=== PATIENT | female | born 1980 | race Caucasian/White ===

== ENCOUNTER 2022-04-13 11:13 | Emergency (ER) | payer OTHER ==
[~2022-04-13] VITALS: Ht 154.9 cm; Wt 102.1 kg
[2022-04-13 11:47] LABS: BASOPHILS # (AUTO) 0.1 10^3/uL (0.0-0.1); BASOPHILS % (AUTO) 1 % (0-10); EOSINOPHILS # (AUTO) 0.4 10^3/uL (0.0-0.3); EOSINOPHILS % (AUTO) 4 % (0-10); HEMATOCRIT 57 % (35-52); HEMOGLOBIN 19.5 g/dL (11.5-16.0); LYMPHOCYTES # (AUTO) 2.6 10^3/uL (1.0-4.0); LYMPHOCYTES % (AUTO) 23 % (12-44); MEAN CORPUSCULAR HEMOGLOBIN 32 pg (25-34); MEAN CORPUSCULAR HGB CONC 34 g/dL (32-36); MEAN CORPUSCULAR VOLUME 94 fL (80-99); MEAN PLATELET VOLUME 9.9 fL (9.0-12.2); MONOCYTES # (AUTO) 1.2 10^3/uL (0.0-1.0); MONOCYTES % (AUTO) 11 % (0-12); NEUTROPHILS # (AUTO) 6.8 10^3/uL (1.8-7.8); NEUTROPHILS % (AUTO) 62 % (42-75); PLATELET COUNT 316 10^3/uL (130-400)
[2022-04-13 11:53] LABS: ALBUMIN 4.2 GM/DL (3.2-4.5); CHLORIDE 102 MMOL/L (98-107); POTASSIUM 4.1 MMOL/L (3.6-5.0); SODIUM 138 MMOL/L (135-145)
--- NOTE | 2022-04-13 11:53 | ED Respiratory ---
General Chief Complaint: Respiratory Problems Stated Complaint: SOB/POSSIBLE BLOOD CLOT Nursing Triage Note: PT AMB TO RM 7 AFTER BEING SENT BY [facility] FOR FURTHER EVALUATION. PT HAD NEW APPT WITH CHRISTINA BA AT [facility] AND O2 WAS 85%. PT STATES SHE HAD COVID A YEAR AND A HALF AGO AND HAD BEEN ON HOME OXYGEN SINCE. STATES ABOUT 3 MONTHS AGO HER PCP WAS WANTING HER TO WEAN HERSELF OFF OXYGEN. STATES SINCE SHE STILL GETS WINDED WITH ACTIVITY AND IS IN THE MID 80s ON ROOM AIR. DENIES CP, SOA OR ANY OTHER SYMPTOMS AT THIS TIME. History of Present Illness Date Seen by Provider: Apr 13, 2022 Time Seen by Provider: 11:20 Initial Comments Patient is a 42-year-old female who presents to the emergency department at the behest of her new PCP as there was some concern that she could possibly have a PE. Patient states she had COVID approximately 18 months ago and since that time has had persistent exertional dyspnea/shortness of air. She states nothing has recently changed but she saw a new provider who had some pulmonary background. Patient was on supplemental oxygen at home for several months but approximately 1 month ago was weaned off. Patient states she has still had dyspnea with exertion. She states she has no issues when she is sitting still but ambulating or doing any activity causes her to be short of breath. She states she still has equipment for home oxygen but does not use it per her former PCPs recommendation. She again denies any acute symptomology but states she feels exactly the same as she has for several months. She denies any unilateral lower extremity swelling/redness. She states she does get some bilateral lower extremity edema when she is on her feet for a prolonged period of time but this is not new. She denies any chest pain. Allergies and Home Medications Allergies Coded Allergies: No Known Drug Allergies (Unverified , 04/13/22) Patient Home Medication List Home Medication List Reviewed: Yes Review of Systems Review of Systems Constitutional: no symptoms reported EENTM: no symptoms reported Respiratory: see HPI Cardiovascular: see HPI Gastrointestinal: no symptoms reported Genitourinary: no symptoms reported Musculoskeletal: no symptoms reported Skin: no symptoms reported Psychiatric/Neurological: No Symptoms Reported Past [id number] Hx Patient Social History Tobacco Use?: No Use of E-Cig and/or Vaping dev: No Substance use?: No Alcohol Use?: No Pt feels they are or have been: No Physical Exam Vital Signs - First Documented 04/13/22 11:20 Temp 36.6 Pulse 104 Resp 25 B/P (MAP) 167/109 (128) Pulse Ox 92 O2 Delivery Room Air O2 Flow Rate 2.00 Capillary Refill : Less Than 3 Seconds Height: '" Weight: lbs. oz. kg; 42.00 BMI Method: General Appearance: WD/WN, no apparent distress HEENT: PERRL/EOMI, normal ENT inspection, TMs normal, pharynx normal Neck: non-tender, full range of motion, supple, normal inspection Respiratory: chest non-tender, lungs clear, normal breath sounds, no respiratory distress, no accessory muscle use Cardiovascular: regular rate, rhythm, no edema, no gallop, no JVD, no murmur Gastrointestinal: normal bowel sounds, non tender, soft, no organomegaly, no pulsatile mass Extremities: normal range of motion, normal inspection Neurologic/Psychiatric: no motor/sensory deficits, alert, normal mood/affect, oriented x 3 Skin: normal color, warm/dry Progress/Results/Core Measures Suspected Sepsis SIRS Temperature: Pulse: 104 Respiratory Rate: 25 Laboratory Tests 04/13/22 11:30: White Blood Count 11.0 Blood Pressure 167 /109 Mean: 128 Laboratory Tests 04/13/22 11:30: Creatinine 0.74, Platelet Count 316, Total Bilirubin 0.4 Results/Orders Lab Results Laboratory Tests Test 04/13/22 11:30 Range/Units White Blood Count 11.0 4.3-11.0 10^3/uL Red Blood Count 6.07 H 3.80-5.11 10^6/uL Hemoglobin 19.5 H 11.5-16.0 g/dL Hematocrit 57 H 35-52 % Mean Corpuscular Volume 94 80-99 fL Mean Corpuscular Hemoglobin 32 25-34 pg Mean Corpuscular Hemoglobin Concent 34 32-36 g/dL Red Cell Distribution Width 13.1 10.0-14.5 % Platelet Count 316 130-400 10^3/uL Mean Platelet Volume 9.9 9.0-12.2 fL Immature Granulocyte % (Auto) 0 % Neutrophils (%) (Auto) 62 42-75 % Lymphocytes (%) (Auto) 23 12-44 % Monocytes (%) (Auto) 11 0-12 % Eosinophils (%) (Auto) 4 0-10 % Basophils (%) (Auto) 1 0-10 % Neutrophils # (Auto) 6.8 1.8-7.8 10^3/uL Lymphocytes # (Auto) 2.6 1.0-4.0 10^3/uL Monocytes # (Auto) 1.2 H 0.0-1.0 10^3/uL Eosinophils # (Auto) 0.4 H 0.0-0.3 10^3/uL Basophils # (Auto) 0.1 0.0-0.1 10^3/uL Immature Granulocyte # (Auto) 0.0 0.0-0.1 10^3/uL Neutrophils % (Manual) 57 % Lymphocytes % (Manual) 29 % Monocytes % (Manual) 11 % Eosinophils % (Manual) 2 % Basophils % (Manual) 1 % Band Neutrophils 0 % Blood Morphology Comment NORMAL D-Dimer < 0.27 0.00-0.49 UG/ML Sodium Level 138 135-145 MMOL/L Potassium Level 4.1 3.6-5.0 MMOL/L Chloride Level 102 98-107 MMOL/L Carbon Dioxide Level 23 21-32 MMOL/L Anion Gap 13 5-14 MMOL/L Blood Urea Nitrogen 17 7-18 MG/DL Creatinine 0.74 0.60-1.30 MG/DL Estimat Glomerular Filtration Rate 103 BUN/Creatinine Ratio 23 Glucose Level 86 70-105 MG/DL Calcium Level 9.4 8.5-10.1 MG/DL Corrected Calcium 9.2 8.5-10.1 MG/DL Total Bilirubin 0.4 0.1-1.0 MG/DL Aspartate Amino Transf (AST/SGOT) 21 5-34 U/L Alkaline Phosphatase 72 40-136 U/L Troponin I < 0.028 <0.028 NG/ML B-Type Natriuretic Peptide < 10.0 <100.0 PG/ML Total Protein 7.6 6.4-8.2 GM/DL Albumin 4.2 3.2-4.5 GM/DL My Orders Orders - CHRIS ANTHONY DISC RECORDIST Cbc And Manual Diff (04/13/22 11:41) Comprehensive Metabolic Panel (04/13/22 11:41) Ekg Tracing (04/13/22 11:41) Troponin I [place] (04/13/22 11:41) Bnp Charlene (04/13/22 11:41) Fibrin Degradation Products (04/13/22 11:41) Chest 1 View, Ap/Pa Only (04/13/22 11:41) Iv/Invasive Line Insertion .IV INSERT (04/13/22 11:41) Vital Signs/I&O 04/13/22 04/13/22 11:20 11:20 Temp 36.6 Pulse 104 Resp 25 B/P (MAP) 167/109 (128) Pulse Ox 92 O2 Delivery Room Air Nasal Cannula O2 Flow Rate 2.00 Capillary Refill : Less Than 3 Seconds Blood Pressure Mean: 128 Progress Note : Progress Note Patient is nontoxic and well-hydrated on exam. No adventitious lung sounds or increased work of breathing noted. Vital signs are reassuring. Patient is normopoxic on 1.5 L of oxygen. She denies any acute complaints at this time. Laboratory evaluation is notable for some polycythemia that is likely compensatory for her chronic hypoxia over the last several months. Chest x-ray is acutely negative. D-dimer is negative. Troponin and BNP are both negative. EKG without acute ischemic change or arrhythmia. Patient's symptoms are likely just a continuation of her chronic post COVID pathology. I reiterated what her provider today said that she needs to resume wearing her oxygen at 1 to 2 L all the time as this will likely reduce her exertional intolerance. She does state that she feels much better when she wears her oxygen while doing her home activities compared to when she does not. There is no indication for further emergent work-up or hospital admission at this time. Closely follow-up with PCP for further evaluation and treatment. Return precautions for urgent symptomology discussed. Patient verbalized understanding. Departure Impression Primary Impression: Post-COVID chronic dyspnea Additional Impressions: Chronic respiratory failure with hypoxia, on home oxygen therapy Polycythemia Disposition: HOME, SELF-CARE Condition: Stable Departure-Patient Inst. Decision time for Depature: 12:35 Referrals: REBEL OLIVIER (PCP/Family) Primary Care Physician Patient Instructions: Shortness of Breath (Dyspnea), Oxygen Therapy, Adult (DC) Add. Discharge Instructions: It is important you resume using your home oxygen at all times as this will likely markedly improve your symptoms. There are no findings today in the emergency department that are concerning for any other emergent process. Follow-up with your new primary care physician in the near future for further evaluation and treatment. All discharge instructions reviewed with patient and/or family. Voiced understanding. CHRIS ANTHONY DISC RECORDIST Apr 13, 2022 11:52
[2022-04-13 11:55] LABS: CALCIUM 9.4 MG/DL (8.5-10.1)
[2022-04-13 11:56] LABS: GLUCOSE 86 MG/DL (70-105); TOTAL PROTEIN 7.6 GM/DL (6.4-8.2)
[2022-04-13 11:57] LABS: BILIRUBIN,TOTAL 0.4 MG/DL (0.1-1.0); CARBON DIOXIDE 23 MMOL/L (21-32)
[2022-04-13 11:59] LABS: ALKALINE PHOSPHATASE 72 U/L (40-136); CREATININE SERUM 0.74 MG/DL (0.60-1.30); GFR ESTIMATED 103
[2022-04-13 12:00] LABS: BUN/CREATININE RATIO 23
[2022-04-13 12:07] LABS: BAND NEUTROPHILS 0 %; BASOPHILS % (MANUAL) 1 %; EOSINOPHILS % (MANUAL) 2 %; LYMPHOCYTES % (MANUAL) 29 %; MONOCYTES % (MANUAL) 11 %; NEUTROPHILS % (MANUAL) 57 %; RBC MORPH NORMAL
--- NOTE | 2022-04-13 12:07 | Diagnostic Imaging Report ---
Clinical indication: Patient with shortness of breath. Patient with dyspnea on exertion. EXAM: Portable chest x-ray upright view. COMPARISON: None. FINDINGS: Lungs/pleura: Suspected mild bibasilar atelectasis. Otherwise, lungs are clear. There is no pneumothorax. There is no pleural effusion. Mediastinum: Unremarkable. Pulmonary vasculature: Unremarkable. Heart: Chest x-ray is upper limits of normal for portable projection. Bones/extrathoracic soft tissue: Unremarkable. IMPRESSION: There is no radiographic evidence of acute cardiopulmonary process. Suspected mild bibasilar atelectasis. Dictated by: Dictated on workstation # [id number]
[2022-04-13 13:01] LABS: ALANINE AMINOTRANSFERASE 40 U/L (0-55)
[2022-04-13 13:13] VITALS: BP 148/100
== END 2022-04-13 13:13 | disposition home or self-care (01) ==
LOC: ER 11:18
DX: U09.9 Post COVID-19 condition, unspecified (principal); J96.11 Chronic respiratory failure with hypoxia; D75.1 Secondary polycythemia
CPT/HCPCS: 36415; 71045; 80053; 83880; 84484; 85007; 85027; 85379; 93005

== ENCOUNTER → 2022-06-16 | Outpatient (CLI) | payer OTHER ==
[~2022-06-16] MED LIST: RT-ALBUTEROL SULF 2.5 MG/3 ML PRE-MIX VIAL INH ONE
== END ==
LOC: RT 13:26
PROVIDERS: ATTEND Nurse Practitioner Family
DX: R06.02 Shortness of breath (principal); Z86.16 Personal history of COVID-19
CPT/HCPCS: 94060; 94726; 94729